=== PATIENT | male | born 1995 | race Caucasian/White ===

== ENCOUNTER 2016-04-25 12:35 | Emergency (ER) | payer BC ==
[~2016-04-25] VITALS: Ht 177.8 cm; Wt 72.8 kg
[2016-04-25 12:39] VITALS: TEMP 36.6; Ht 177.8 cm; Wt 72.8 kg
[2016-04-25] MEDS ORDERED: SODIUM CHLORIDE 0.9% 1000ML 1,000 ML IV STA (12:51)
[2016-04-25] MEDS ORDERED: GI COCKTAIL PO STA (12:51)
[2016-04-25] MEDS ORDERED: PANTOprazole INJ 40 MG in SYRINGE 0 ML IV ONE (13:00)
[2016-04-25] MEDS ORDERED: LIDOCAINE HCL 2% VISC SOLN 20 ML UDC ONE (13:05)
[2016-04-25] MEDS ORDERED: ALUMINUM/MAGNESIUM SUSP 30 ML UDC ONE (13:05)
[2016-04-25 13:11] LABS: BASO % 0.1 %; BASO ABS # 0.01 K/uL (0-0.2); COMPLETE YES; EOS % 0.5 %; HEMATOCRIT 51.8 % (42-52); IG% 0.3 %; LYMPH % 16.7 %; LYMPH ABS # 1.73 K/uL (1.2-3.4); MEAN CORPUSCULAR HEMOGLOBIN 32.9 pg (25-34); MEAN CORPUSCULAR HGB CONC 35.3 g/dl (32-36); MEAN PLATELET VOLUME 9.9 fL (7.4-10.4); MONO % 9.4 %; PLATELET COUNT 206 K/uL (130-400); RED BLOOD COUNT 5.57 M/uL (4.7-6.1); WHITE BLOOD COUNT 10.35 K/uL (4.8-10.8)
[2016-04-25 13:29] LABS: BUN/CREATININE RATIO 9.7 (10-20); CALCIUM 8.8 mg/dl (8.5-10.1); CREATININE 1.2 mg/dl (0.60-1.40); POTASSIUM 4.1 mmol/L (3.5-5.1)
[2016-04-25 13:31] LABS: ALB/GLOB RATIO 1.2 (0.9-2)
--- NOTE | 2016-04-25 14:08 | DIAGNOSTIC IMAGING REPORT ---
PA CHEST RADIOGRAPH AND UPRIGHT AND SUPINE AP RADIOGRAPHS OF THE ABDOMEN CLINICAL HISTORY: Epigastric pain. COMPARISON STUDY: No previous studies for comparison. FINDINGS: Lung volumes are normal. Lungs are clear. There is no pneumothorax or pleural effusion. Cardiac size is normal. Mediastinal contours are normal. There is no evidence of pulmonary edema. There is no free air. The bowel gas pattern is normal. No calcifications are identified within the abdomen or pelvis. IMPRESSION: 1. No free air or evidence of bowel obstruction. 2. No acute cardiopulmonary findings. Electronically signed by: Jarrod Tillman M.D. 04/25/2016 2:07 PM Dictated Date/Time: 04/25/2016 2:06 PM
[2016-04-25] MEDS ORDERED: SALI10LI (14:13)
[2016-04-25] MEDS ORDERED: ADAP0.054 (14:13)
[2016-04-25] MEDS ORDERED: OMEP40CA41 PO (14:28)
--- NOTE | 2016-04-25 14:29 | EMERGENCY ROOM VISIT NOTE ---
History First contact with patient: 12:44 Chief Complaint: ABDOMINAL PAIN Stated Complaint: STOMACH PAIN Nursing Triage Summary: pt c/o epigastric pain since last night. pt denies n/v/d History of Present Illness The patient is a 20 year old male who presents to the Emergency Room with complaints of upper abdominal pain which began 24-36 hours ago. The patient reports that yesterday morning/early afternoon, he developed pain in his upper abdomen. The patient has been constant since then and he rates the discomfort a 7/10. He describes as sharp and states that it is slightly worse with certain positions, but there is nothing else that worsens the pain. He does report that the night before the pain began, he did consume alcohol. He has no associated nausea, vomiting, changes in bowel movements, or loss of appetite. He has not had any fevers or chills. He denies urinary symptoms, chest pain, shortness of breath or flulike symptoms. He denies any previous abdominal surgeries. He has not tried any medications at home for his discomfort. Review of Systems A complete 10-point Review of Systems was discussed with the patient, with pertinent positives and negatives listed in the History of Present Illness. All remaining Review of Systems questions can be considered negative unless otherwise specified. Social History Smoking Status: Never Smoker Current/Historical Medications Scheduled Omeprazole (Prilosec), 1 CAP PO DAILY Miscellaneous Medications Adapalene-Benzoyl Peroxide (Epiduo Forte 0.3-2.5 %) Salicylic Acid (Acne Wash) Allergies Coded Allergies: Shellfish (Verified Allergy, Intermediate, throat swelling, 04/25/16) Ascorbate (Verified Allergy, Mild, RUNNY NOSE, 04/25/16) Iron (Verified Allergy, Mild, RUNNY NOSE, 04/25/16) Physical Exam Vital Signs Date Time Temp Pulse Resp B/P Pulse Ox O2 Delivery O2 Flow Rate FiO2 04/25/16 14:47 77 18 129/79 96 04/25/16 13:48 80 16 137/84 04/25/16 12:39 36.6 91 18 145/80 96 Room Air Physical Exam VITALS: Vitals are noted on the nurse's note and reviewed by myself. Vital signs stable. GENERAL: This is a 20-year-old male, in no acute distress, nondiaphoretic, well- developed well-nourished. SKIN: Capillary reflex less than 2 seconds. HEART: Regular rate and rhythm without murmurs gallops or rubs. LUNGS: Clear to auscultation bilaterally without wheezes, rales or rhonchi. ABDOMEN: Positive bowel sounds x 4. The abdomen is soft. There is mild tenderness of the epigastric region. The abdomen is otherwise nontender. Ferguson sign negative. No guarding or rebound tenderness. NEURO: Patient was alert and oriented to person place and time. Medical Decision & Procedures ER Provider Diagnostic Interpretation: PA CHEST RADIOGRAPH AND UPRIGHT AND SUPINE AP RADIOGRAPHS OF THE ABDOMEN FINDINGS: Lung volumes are normal. Lungs are clear. There is no pneumothorax or pleural effusion. Cardiac size is normal. Mediastinal contours are normal. There is no evidence of pulmonary edema. There is no free air. The bowel gas pattern is normal. No calcifications are identified within the abdomen or pelvis. IMPRESSION: 1. No free air or evidence of bowel obstruction. 2. No acute cardiopulmonary findings. Laboratory Results 04/25/16 13:00 Red Blood Count 5.57, Mean Corpuscular Volume 93.0, Mean Corpuscular Hemoglobin 32.9, Mean Corpuscular Hemoglobin Concent 35.3, Mean Platelet Volume 9.9, Neutrophils (%) (Auto) 73.0, Lymphocytes (%) (Auto) 16.7, Monocytes (%) (Auto) 9.4, Eosinophils (%) (Auto) 0.5, Basophils (%) (Auto) 0.1, Neutrophils # (Auto) 7.56, Lymphocytes # (Auto) 1.73, Monocytes # (Auto) 0.97, Eosinophils # (Auto) 0.05, Basophils # (Auto) 0.01 04/25/16 13:00 Test 04/25/16 13:00 White Blood Count 10.35 K/uL (4.8-10.8) Red Blood Count 5.57 M/uL (4.7-6.1) Hemoglobin 18.3 g/dL (14.0-18.0) Hematocrit 51.8 % (42-52) Mean Corpuscular Volume 93.0 fL (80-100) Mean Corpuscular Hemoglobin 32.9 pg (25-34) Mean Corpuscular Hemoglobin Concent 35.3 g/dl (32-36) Platelet Count 206 K/uL (130-400) Mean Platelet Volume 9.9 fL (7.4-10.4) Neutrophils (%) (Auto) 73.0 % Lymphocytes (%) (Auto) 16.7 % Monocytes (%) (Auto) 9.4 % Eosinophils (%) (Auto) 0.5 % Basophils (%) (Auto) 0.1 % Neutrophils # (Auto) 7.56 K/uL (1.4-6.5) Lymphocytes # (Auto) 1.73 K/uL (1.2-3.4) Monocytes # (Auto) 0.97 K/uL (0.11-0.59) Eosinophils # (Auto) 0.05 K/uL (0-0.5) Basophils # (Auto) 0.01 K/uL (0-0.2) RDW Standard Deviation 46.5 fL (36.4-46.3) RDW Coefficient of Variation 13.7 % (11.5-14.5) Immature Granulocyte % (Auto) 0.3 % Immature Granulocyte # (Auto) 0.03 K/uL (0.00-0.02) Anion Gap 7.0 mmol/L (3-11) Est Creatinine Clear Calc Drug Dose 100.3 ml/min Estimated GFR () 99.6 Estimated GFR (Non- 85.9 BUN/Creatinine Ratio 9.7 (10-20) Calcium Level 8.8 mg/dl (8.5-10.1) Total Bilirubin 1.0 mg/dl (0.2-1) Aspartate Amino Transf (AST/SGOT) 29 U/L (15-37) Alanine Aminotransferase (ALT/SGPT) 34 U/L (12-78) Alkaline Phosphatase 100 U/L (45-117) Total Protein 7.0 gm/dl (6.4-8.2) Albumin 3.8 gm/dl (3.4-5.0) Globulin 3.2 gm/dl (2.5-4.0) Albumin/Globulin Ratio 1.2 (0.9-2) Lipase 199 U/L (73-393) Medications Administered Medications (Trade) Dose Ordered Sig/David Route Start Time Stop Time Status Last Admin Dose Admin Sodium Chloride 1,000 ml @ 999 mls/hr Q1H1M STAT IV 04/25/16 12:51 04/25/16 13:51 DC 04/25/16 13:15 999 MLS/HR Pantoprazole Sodium/Syringe (Protonix Inj/ Syringe) 10 ml @ 5 mls/min NOW ONCE IV 04/25/16 13:00 04/25/16 13:01 DC 04/25/16 13:15 5 MLS/MIN Al Hydroxide/Mg Hydroxide (Maalox Susp) 30 ml STK-MED ONCE .ROUTE 04/25/16 13:05 04/25/16 13:07 DC 04/25/16 13:15 30 ML Lidocaine HCl (Viscous Lidocaine 2% Soln) 20 ml STK-MED ONCE .ROUTE 04/25/16 13:05 04/25/16 13:07 DC 04/25/16 13:15 20 ML Medical Decision Differential diagnosis includes gastroenteritis, colitis, cholecystitis, appendicitis, diverticulitis, mesenteric adenitis, gastritis, among others. The patient was evaluated as above. Labs were drawn and IV access was obtained. Imaging studies were performed and read by radiology as above. The patient was medicated with 1 L normal saline solution, a GI cocktail, and 40 mg Protonix. The patient was reassessed multiple times during their stay in the emergency department and remained in stable condition. The patient is a 20-year-old male who presents today complaining of epigastric abdominal pain. The patient does not have a surgical abdomen on examination. He has mild tenderness of the epigastric region, but is otherwise nontender. Labs revealed no leukocytosis, anemia or concerning electrolyte abnormalities. Kidney and liver functions were within normal limits. Abdominal series was performed and was negative. The patient's symptoms began one day after consuming alcohol. I feel that his symptoms are likely secondary to gastritis given the patient's presentation. He does not have leukocytosis, fevers or vomiting, making appendicitis or other acute infectious process within the abdomen and unlikely. I did explain to the patient that my workup today did not fully rule out a process like appendicitis, but I do feel that further imaging is necessary at this time. The patient should return if he has worsening symptoms for further workup at that time. He will be placed on Prilosec and we did discuss foods to avoid in the meantime. He should follow- up with his primary care provider for further evaluation within 1-2 weeks. The patient was agreeable to this treatment plan. Based on the patient's presentation, lab results, and imaging studies, I feel the patient is stable for outpatient treatment. Discharge instructions were reviewed with the patient. The patient verbalized understanding of my assessment and treatment plan and was discharged home in good condition. Impression Primary Impression: Epigastric abdominal pain Departure Information Dispostion Home / Self-Care Condition GOOD Prescriptions Omeprazole (PRILOSEC) 40 Mg Cap 1 CAP PO DAILY for 21 Days, #21 CAP Prov: Mirna Sanders .[place] 04/25/16 Referrals No Doctor, Assigned (PCP) Patient Instructions ED GERD, GERD Lifestyle Changes, [facility] Additional Instructions You have been treated in the Emergency Department for your suspected Gastroesophageal Reflux Disease or GERD for short. Laboratory results and Imaging studies have ruled out any other emergent or surgical gastrointestinal issues. You should take Prilosec as prescribed. This is a drug that will help with any possible indigestion that might be contributing to your pain/discomfort. You should take this medicine EVERY day for the best results. This medicine is not intended to be used for immediate relief of symptoms, but rather to reduce the risk of recurrence of symptoms. You can consider using TUMS for relief of any indigestion that you might be experiencing. This drug is fast acting and can be used for immediate relief of your indigestion symptoms. You should eat a bland diet for the next few days. Some suggested bland dietary foods: Bananas, Rice, Applesauce, [place], or Boiled Chicken. These foods are easy to digest and help you to recover at a faster rate. 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 For pain control, you can use the following [id number] medicines (if >12 yo): - Regular strength (325mg/tab) Tylenol (acetaminophen) 2 tabs every 4-6 hours as needed. Do not exceed 12 tablets in a 24 hour period. Avoid taking more than 4 grams (4000 mg) of Tylenol per day. This includes any other sources of acetaminophen you may take on a regular basis. - Regular strength (200 mg/tab) Advil (ibuprofen) 1-2 tabs every 4-6 hours as needed. Do not exceed a dose of 3200 mg per day. You should schedule a follow-up appointment with your Primary Care Provider in 2 -3 days for further evaluation from today's Emergency Department visit. Your Primary Care Provider should be involved in the addition of any new medications. Your Primary Care Provider may also refer you to a Community Youth Secretary, a doctor who specializes in the digestive system. Return to the Emergency Department if your current symptoms worsen despite treatment course outlined above, or if you develop any of the following symptoms : worsening abdominal pain, associated chest or back pain, worsening nausea/ vomiting, dizziness, shortness of breath, blood in your vomit, or fainting.
[2016-04-25 14:47] VITALS: BP 129/79; PULSE 77; O2SAT 96
== END 2016-04-25 14:48 | disposition home or self-care (01) ==
LOC: C.EDB 12:38
DX: R10.13 Epigastric pain (principal)